=== PATIENT | female | born 1960 | race Caucasian/White ===

== ENCOUNTER 2019-07-29 04:42 | Emergency (ER) | payer BC, SELFPAY ==
[2019-07-29 04:43] VITALS: BP 118/82; PULSE 60; RESP 12; TEMP 36.4; O2SAT 99; BMI 29.4
--- NOTE | 2019-07-29 04:51 | ED.VIS.GEN ---
History of Present Illness Chief Complaint: Upper Extremity Injury Informant: Patient Narrative: Stated a few hours ago she woke up with sharp pain in the medial aspect of her scapula. It radiates into her right arm and down to her wrist. It is a burning sensation as well. She has been having this mildly for the last week. It is movement related. She did lift some heavy things yesterday and thinks she might exacerbated pain in this area. She is tried massage. No home medications. No previous injury to this area. It hurts to touch it. It hurts to move her right arm secondary to pain in that scapular region. Relieved somewhat with rest. - Past Medical History (1) Chest pain Status: Acute (2) Pre-syncope Status: Acute (3) Asthma Status: Chronic (4) Hyperlipidemia Status: Chronic (5) Hypothyroidism Status: Chronic Past Medical History - Allergies and Home Meds Allergies/Adverse Reactions: Allergies clarithromycin [From Biaxin] Allergy (Verified 07/29/19 04:50) Rash codeine Allergy (Verified 07/29/19 04:50) Rash erythromycin base Allergy (Verified 07/29/19 04:50) Rash Penicillins Allergy (Verified 07/29/19 04:50) Rash Sulfa (Sulfonamide Antibiotics) Allergy (Verified 07/29/19 04:50) Rash Primary Care Physician: Jose Eduardo Dubois MD [STAFF PHYSICIAN] - Prior records reviewed: Yes Past Medical History: - - See problem list Surgical History: adenoidectomy, gastric bypass, hysterectomy, tonsillectomy, - - , laparoscopy Lives: With Family Smoking Status: Never smoker Alcohol: None Drugs: None - Family History Maternal Family History: Reports: Cancer Paternal Family History: Reports: Hypertension Review of Systems General: Denies: Chills, Fever, Sweats Eyes: Denies: Visual changes - bilaterally, Diplopia ENT: Denies: Rhinorrhea, Sore throat Cardiovascular: Denies: Chest pain, Palpitations Respiratory: Denies: Dyspnea, Cough, Dyspnea on exertion Gastrointestinal: Denies: Abdominal pain, Nausea, Vomiting, Diarrhea, Melena, Hematochezia Genitourinary: Denies: Dysuria, Hematuria, Frequency Musculoskeletal: Reports: Back pain, Extremity Pain Skin: Denies: Rash, Wounds Neurological: Denies: Headache, Weakness, Numbness Physical Exam Vital Signs/Narrative: Vital Signs Temp Pulse Resp BP Pulse Ox 07/29/19 04:43 97.6 F L 60 12 118/82 H 99 General: Well nourished, Well developed, No Acute Distress Head: Normocephalic, Atraumatic Eyes: Perrl, EOMI ENT: Moist mucous membranes, No rhinorrhea Neck: Supple, Nontender Cardiovascular: Regular rate, Regular rhythm, No murmurs Respiratory: No distress, CTA bilaterally, Chest nontender Abdomen: Soft, Nontender, Nondistended, Normal bowel sounds Back: Normal Inspection, - - Point tenderness on the superior medial border of the scapula without swelling or deformity over the rhomboid Extremities: Nontender, No edema, - - Normal pulses. Negative for: Tenderness Skin: Normal color, No rash Neurological: Alert, Oriented x3, Cranial nerves II-XII grossly intact, Normal Strength, Normal Sensation Psychological: Normal affect, Normal Mood Diagnostic/Tx/Re-eval - Medical Decision Making Patient given a dose of Dilaudid and Toradol. Given ice pack. At this time I feel she has an acute rhomboid inflammation or strain. This is also causing her radiculopathy the right upper extremity. I do not feel is cardiac PE or dissection. Patient feels significantly better after treatment. Will be given a prescription for Medrol Dosepak to try to calm her radiculopathy. Will also be given Percocet for home ED Disposition - Plan for ED Patient: Disposition: Home or Assisted Living Diagnosis: Rhomboid muscle strain, Radiculopathy affecting upper extremity Instructions: Treating?Strains and Sprains Prescriptions: MethylPREDNISolone DosePak [Medrol DosePak] 4 mg PO UD #1 box Transmission Status: Received by [id number] Oxycodone HCl/Acetaminophen [Percocet 5/325] 1 - 2 tab PO Q6H PRN PRN 3 Days #12 tab PRN Reason: Pain Transmission Status: Received by [id number] Referrals: Jose Eduardo Dubois MD [STAFF PHYSICIAN] -
[2019-07-29] MEDS: Ketorolac 30 MG/ML Syringe IM (04:55)
[2019-07-29] MEDS: Ondansetron ODT 4 MG Tablet 8 MG PO (04:55)
[2019-07-29] MEDS: HYDROmorphone 1 MG/ML Syringe IM (04:55)
[2019-07-29] MEDS: HYDROmorphone 0.5 MG/0.5 ML SYRINGE IM (05:51)
[2019-07-29 06:13] VITALS: RESP 16
== END 2019-07-29 06:14 | disposition home or self-care (01) ==
PROVIDERS: Emergency Provider Emergency Medicine
DX: S29.012A Strain of muscle and tendon of back wall of thorax, initial encounter (principal); M54.10 Radiculopathy, site unspecified; J45.909 Unspecified asthma, uncomplicated; E78.5 Hyperlipidemia, unspecified; E03.9 Hypothyroidism, unspecified; Z79.899 Other long term (current) drug therapy; X50.0XXA Overexertion from strenuous movement or load, initial encounter; Y93.89 Activity, other specified; Y92.89 Other specified places as the place of occurrence of the external cause; Y99.8 Other external cause status
CPT/HCPCS: 96372; 99283

== ENCOUNTER 2019-08-01 06:37 | Emergency (ER) | payer BC, SELFPAY ==
[2019-08-01 06:38] VITALS: BP 147/81; PULSE 67; RESP 18; TEMP 36.2; O2SAT 97; BMI 29.7
--- NOTE | 2019-08-01 06:55 | ED.DCSUM_ITS ---
- ER Visit Summary Date of Service: 08/01/19 Chief Complaint: Right upper back pain. History of Present Illness: The patient is a 58 F has medical history of hypothyroidism congenital 1 kidney prior gastric bypass. Patient states she normally does not have back pain. States Thursday morning around 3 AM started having right upper back pain. At times radiates to her right arm. Denies any neck pain. Denies any fall or trauma. She did lift some boards several days before this and thinks that may be the cause. She denies any cough or chest pain. She was seen in the emergency department written for Percocet for pain and says not controlling the pain. States the pain is worse with any type of movement. Physical Examination: Well-appearing 4-year-old female no acute distress vital signs stable afebrile. HEENT exam unremarkable. Neck nontender no lymphadenopathy full range of motion. Lungs clear to auscultation bilaterally. Heart regular rhythm no murmur. Abdomen soft nontender normal bowel sounds no peritoneal signs. Extremities moves all 4. Neurovascular intact. Equal symmetrical radial pulses bilaterally. 4-5 order to delivery supervisor strength right hand. Normal touch sensation. She has pain with range of motion of the right arm. Back exam she is para thoracic spinal and scapular soft tissue tenderness. Consistent with myofascial strain and spasm. There is no ecchymosis or bruising. No bony deformity. Cervical thoracic and lumbar spine are all nontender. Neurologic ally she is awake alert with no focal motor deficit. Test Results: None. I do not think imaging or labs at this time would be of any benefit. Emergency Department Course and Treatment: Patient be written for limited [place] 10 no refill. I think this is a musculoskeletal etiology consistent with myofascial strain and spasm of the right trapezius. She be written for Skelaxin. Treatment Plan: [place] for pain 10 no refill. Skelaxin 800 3 times daily #30. Follow-up with her primary care physician. Disposition: Discharge Impression: Upper back pain secondary to myofascial strain and spasm of the trapezius muscle This note was generated with [employer] dictation software. It may contain incorrect words, spelling, and punctuation that were not noted in review of the chart prior to signing ED Disposition - Plan for ED Patient: Referrals: NOT,DEFINED [Primary Care Provider] -
[2019-08-01] MEDS: HYDROcodone Bitartrate/Apap 5/325 Tablet PO (06:57)
--- NOTE | 2019-08-01 06:59 | DCINST.ED_ITS ---
ED Disposition - Plan for ED Patient: Disposition: Home or Assisted Living Instructions: ED Spasm Back No Trauma Prescriptions: Hydrocodone Bitart/Apap 5-325 [[place] 5MG-325MG] 1 tab PO Q4H PRN PRN 2 Days #10 tab PRN Reason: Pain Prescription Printed Metaxalone [Skelaxin] 800 mg PO 4X/DAY #30 tab Prescription Printed Referrals: Devyn Jimenez PA [PHYSICIAN STORE OPERATIONS ASSOCIATE] - 1 Week if not improving Additional Instructions: Hot shower, warm bath and massage to relieve the discomfort in your upper back. Skelaxin as a muscle relaxant. Motrin for anti-inflammatory and pain and limited [place]. Follow-up with your primary care provider Abner Jimenez if not improving.
== END 2019-08-01 07:42 | disposition home or self-care (01) ==
PROVIDERS: Emergency Provider Emergency Medicine; PCP Physician Assistant
DX: S29.012A Strain of muscle and tendon of back wall of thorax, initial encounter (principal); M62.830 Muscle spasm of back; E03.9 Hypothyroidism, unspecified; Z98.84 Bariatric surgery status; Z79.899 Other long term (current) drug therapy; X50.0XXA Overexertion from strenuous movement or load, initial encounter; Y93.89 Activity, other specified; Y92.89 Other specified places as the place of occurrence of the external cause; Y99.8 Other external cause status
CPT/HCPCS: 99283

== ENCOUNTER 2020-07-20 11:00 | Emergency (ER) | payer BC, SELFPAY ==
[2020-07-20 11:01] VITALS: BP 144/92; PULSE 59; RESP 16; TEMP 36.3; O2SAT 97; BMI 28.3
[2020-07-20 11:03] VITALS: BP 144/92; PULSE 59; RESP 16; TEMP 36.3; O2SAT 97
--- NOTE | 2020-07-20 11:18 | ED.VIS.GI ---
HPI HPI - GI History of Present Illness Chief Complaint: Abd Pain Informant: patient Abdominal Pain/Flank Pain Onset: Weeks Timing: Intermittent Quality: Cramping Location: Epigastric and RUQ Current Severity: Mild Maximum Severity: Mild Nausea/Vomiting/Emesis GI Symptom: Positive for Nausea and Vomiting Onset: Days Severity: Mild Diarrhea/Melena/Hematochezia GI Symptom: Positive for Diarrhea Onset: Days Stool Quality: Positive for Loose Severity: Mild Associated Symptoms Associated Symptoms: Negative for Dysuria, Frequency and Hematuria Narrative Narrative: 59-year-old female history of multiple prior abdominal surgeries including gastric bypass, cholecystectomy, hysterectomy, multiple C-sections and laparoscopies. States the last 2 weeks she has had intermittent nausea, vomiting and diarrhea with abdominal cramping primarily in the upper quadrants. Denies any fever or chills. No dysuria. She has had similar symptoms to this before. Patient is in pain management was using oxycodone for her discomfort. Prior similar symptoms: Yes Recent Illness/Hospitalization: No PFSH [facility] Medical History (Updated 07/20/20 @ 14:[address] Marcio Davis MD) Asthma Fatty (change of) liver, not elsewhere classified GERD (gastroesophageal reflux disease) Graves disease Hypoplasia of one kidney Kidney stones Home Medications gabapentin 2,400 mg PO QHS 07/20/13 [History Last Taken 07/19/20] montelukast 10 mg PO DAILY 07/20/13 [History Last Taken 07/20/20] ascorbic acid (vitamin C) [Vitamin C] 1,000 mg PO DAILY 02/24/16 [History Last Taken 07/20/20] biotin 10,000 mcg PO DAILY 02/24/16 [History Last Taken 07/20/20] cyanocobalamin (vitamin B-12) 2,000 mcg PO DAILY 02/24/16 [History Last Taken 07/20/20] lorazepam 0.5 mg PO BID 02/24/16 [History Last Taken 07/20/20] cetirizine 10 mg PO QHS 07/20/20 [History Last Taken 07/19/20] escitalopram oxalate 20 mg PO DAILY 07/20/20 [History Last Taken 07/20/20] levothyroxine [Synthroid] 125 mcg PO DAILY 07/20/20 [History Last Taken 07/20/20] oxybutynin chloride 10 mg PO DAILY 07/20/20 [History Last Taken 07/20/20] pantoprazole 40 mg PO DAILY 07/20/20 [History Last Taken 07/20/20] Allergy/AdvReac Type Severity Reaction Status Date / Time clarithromycin [From Biaxin] Allergy Rash Verified 07/20/20 11:03 codeine Allergy Rash Verified 07/20/20 11:03 erythromycin base Allergy Rash Verified 07/20/20 11:03 Penicillins Allergy Rash Verified 07/20/20 11:03 Sulfa (Sulfonamide Allergy Rash Verified 07/20/20 11:03 Antibiotics) Social History Smoking Status: Never smoker ROS ROS ED Review of Systems ROS Unobtainable: Denies due to encephalopathy Constitutional Constitutional ED: Denies chills or fever(s) ENT ENT ED: Denies ear pain or sore throat Cardiovascular Cardiovascular: Denies chest pain Respiratory/Chest Respiratory/Chest: Denies dyspnea Gastrointestinal Gastrointestinal: Reports abdominal pain, diarrhea, nausea and vomiting Genitourinary Genitourinary ED: Denies dysuria or hematuria Musculoskeletal Musculoskeletal: Denies myalgias Integumentary Denies rash Neurologic Neurologic: Denies headache(s) Psychiatric Psychiatric: Denies depression Endocrine Endocrinology: Denies polyuria Hematologic/Lymphatic Hematologic/Lymphatic: Denies easy bruising Allergic/Immunologic Allergic/Immunologic ED: Denies urticaria EXAM Physical Exam Narrative Exam Narrative: Middle-aged older female no acute distress vital signs stable afebrile. Benign exam except for mild upper abdominal tenderness. No peritoneal signs. No distention. Normal bowel sounds and soft. No obvious signs of obstruction. Otherwise exam unremarkable. Const Vital Signs: 07/20/20 11:01 07/20/20 11:03 07/20/20 13:21 Temperature 97.4 F L 97.4 F L Temperature Source Temporal Temporal Pulse Rate 59 L 59 L 49 L Respiratory Rate 16 16 16 Blood Pressure 144/92 H 144/92 H 144/80 H Blood Pressure Mean 109 109 101 Pulse Ox 97 97 96 Oxygen Delivery Method Room Air Room Air Room Air HEENT Reports moist mucous membranes normocephalic and atraumatic; Negative for tenderness Eyes PERRL and EOMs intact bilaterally Neck no lymphadenopathy, supple and no JVD General: Negative for tenderness Resp normal respiratory effort and clear to auscultation bilaterally Cardio regular rate, regular rhythm and no murmurs GI non-distended and no masses Inspection: Negative for abdominal distention Auscultation: normoactive bowel sounds; Negative for hypoactive bowel sounds Palpation: soft and tender; Negative for rebound tenderness present Back/Spine no CVA tenderness Extremity full ROM General Extremety ED: Negative for edema or tenderness General Extremity: Negative for edema Neuro moves all extremities Sensorium / Orientation: alert, oriented to person, oriented to place and oriented to time Motor Exam: strength 5/5 throughout Psych mental status grossly normal Skin Lesions: no lesions Rashes: no rashes MDM MDM MDM Narrative Medical decision making narrative: 59-year-old with abdominal pain. Has had multiple prior abdominal surgeries. This could be from adhesions and scar tissue. She has had prior bowel obstructions. She will undergo CAT scan imaging with labs. She requested something for pain she will be given a milligram of Dilaudid and Zofran for nausea. The hospitalist and general surgeon discussed the patient's care. I spoke to the general surgeon myself. She felt due to the patient's history of gastric bypass and the level of her current obstruction that she would benefit from a tertiary referral center. I discussed all this with the patient and her . They preferred to stay but understand and I have contacted [facility] and are awaiting acceptance. Lab Data Labs: Laboratory Results - last 24 hr 07/20/20 07/20/20 07/20/20 11:26 11:26 11:56 WBC 8.5 RBC 4.22 Hgb 12.4 Hct 38.5 MCV 91.2 MCH 29.4 MCHC 32.2 RDW Std Deviation 45.7 H RDW Coeff of Mellissa 13.7 Plt Count 182 MPV 12.2 H Immature Gran % (Auto) 0.600 Neut % (Auto) 70.7 H Lymph % (Auto) 22.2 [place] % (Auto) 5.1 Eos % (Auto) 0.9 Baso % (Auto) 0.5 Absolute Neuts (auto) 6.0 Absolute Lymphs (auto) 1.88 Nucleated RBC % 0 Sodium 140 Potassium 4.1 Chloride 107 Carbon Dioxide 27.0 Anion Gap 6 BUN 15 Creatinine 0.85 Estim Creat Clear Calc 57.49 Est GFR (MDRD) Af Amer 87 Est GFR (MDRD) Non-Af 72 BUN/Creatinine Ratio 17.7 Glucose 91 Calcium 8.7 Total Bilirubin 0.40 AST 24 ALT 30 Alkaline Phosphatase 104 Total Protein 7.3 Albumin 3.6 Globulin 3.7 Albumin/Globulin Ratio 1.0 Lipase 50 L Urine Color Yellow Urine Clarity Sl. Cloudy Urine pH 5.0 Ur Specific [place] 1.015 Urine Protein Negative Urine Glucose (UA) Normal Urine Ketones Negative Urine Occult Blood Negative Urine Nitrite Negative Urine Bilirubin Negative Urine Urobilinogen Normal Ur Leukocyte Esterase 25 H Urine RBC 0 SEEN Urine WBC 0-5 SEEN Ur Squamous Epith Cells 0-5 SEEN Urine Bacteria 1+ Urine Mucus 0 SEEN CBC unremarkable white count 8. Hemoglobin 12. Chemistries normal. Liver enzymes normal. Lipase 50. UA negative. Radiography Diagnostic Testing: Radiology Impression Abdomen/Pelvis CT 07/20/20 12:16 IMPRESSION: Status post gastric bypass surgery with postoperative changes. Dilatation of the proximal small bowel loops to the level of the anastomotic site in the left upper quadrant in the mid jejunum. A surgical anastomosis at that site. I suspect narrowing and obstruction at that level. Electronically Signed: Ld Boo MD at 12:49 EDT , Service support , Discharge Plan Triage Chief Complaint: Abd Pain ED Provider: Marcio Davis Dx/Rx/DC Orders Clinical Impression: Partial small bowel obstruction Prescriptions: No Action gabapentin 600 MG tablet 2,400 mg PO QHS RF: 0 montelukast 10 MG tablet 10 mg PO DAILY RF: 0 lorazepam 0.5 MG tablet 0.5 mg PO BID RF: 0 ascorbic acid (vitamin C) [Vitamin C] 1,000 MG tablet 1,000 mg PO DAILY RF: 0 biotin 10,000 MCG capsule 10,000 mcg PO DAILY RF: 0 cyanocobalamin (vitamin B-12) 2,000 MCG tablet 2,000 mcg PO DAILY RF: 0 cetirizine 10 mg Tablet 10 mg PO QHS RF: 0 oxybutynin chloride 10 mg tablet extended release 24hr 10 mg PO DAILY RF: 0 pantoprazole 40 mg tablet,delayed release (DR/EC) 40 mg PO DAILY RF: 0 levothyroxine [Synthroid] 125 mcg tablet 125 mcg PO DAILY RF: 0 escitalopram oxalate 20 mg tablet 20 mg PO DAILY RF: 0 Primary Care Provider: Devyn Jimenez Referrals: Devyn Jimenez, PA [Primary Care Provider] -
[2020-07-20] MEDS: HYDROmorphone 1 MG/ML Syringe IV (11:30)
[2020-07-20] MEDS: Ondansetron 4 MG/2 ML Vial IV (11:30)
[2020-07-20] MEDS: 0.9% Normal Saline 1,000 ML 1000 ML IV (11:30)
[2020-07-20 11:54] LABS: Absolute Lymphocyte Count 1.88 X10^3/uL (0.83-4.51); Basophil# 0.04 X10^3/uL; Basophil% 0.5 % (0-1); Eosinophil# 0.08 X10^3/uL; Eosinophils% 0.9 % (0-5); Hematocrit 38.5 % (37-47); Hemoglobin 12.4 g/dL (12.0-15.0); Lymphocyte # 1.88 X10^3/ul (0.83-4.51); Lymphocyte % 22.2 % (19-41); Mean Corp Hgb Conc 32.2 g/dL (32-36); Mean Corpuscular Hgb 29.4 pg (27.0-32.0); Mean Corpuscular Volume 91.2 fL (81-99); Mean Platelet Vol. 12.2 fl (6.2-12.0); Monocyte# 0.43 X10^3/uL; Monocyte% 5.1 % (0-10); NRBC Flagged by Analyzer 0 % (0-5); Neutrophil % 70.7 % (47-70); Platelet Count 182 K/mm3 (150-450); RBC Distribution Width CV 13.7 % (11.6-14.6); RBC Distribution Width SD 45.7 fl (35.1-43.9); Red Blood Count 4.22 M/mm3 (4.2-5.4); White Blood Count 8.5 K/mm3 (4.4-11.0)
[2020-07-20 12:05] LABS: Mucous, Urine 0 SEEN /hpf (<or=2+); Red Blood Cells-Urine 0 SEEN /hpf (0-5)
[2020-07-20 12:07] LABS: AST(SGOT) 24 U/L (15-37); Alanine Aminotransfer ALT/SGPT 30 U/L (13-56); Albumin, Serum 3.6 g/dL (3.2-5.0); Alkaline Phosphatase 104 U/L (45-117); Anion Gap 6 (5-15); BUN 15 mg/dL (7-18); BUN/Creat Ratio 17.7 RATIO (10-20); Calcium,Total 8.7 mg/dL (8.5-10.1); Chloride 107 mmol/L (98-107); Creatinine, Serum 0.85 mg/dL (0.55-1.02); EST Glomerular Filtration Rate 72 mL/min (>60); Est Glom Filt Rate - Afr Amer 87 mL/min (>60); Estimated Creatinine Clearance 57.49 ml/min; Globulin 3.7 g/dL (2.2-4.2); Glucose 91 mg/dL (74-106); Lipase 50 U/L (73-393); Potassium 4.1 mmol/L (3.5-5.1); Protein, Total 7.3 g/dL (6.4-8.2); Sodium Level 140 mmol/L (136-145)
[2020-07-20 12:08] LABS: Color, Urine Yellow (Yellow); Glucose, Dipstick Normal (Normal); Ketone-Dipstick Negative (Negative); Leukocyte Esterase-Dipstick 25 /ul (Negative); Nitrite-Dipstick Negative (Negative); Occult Blood-Urine Negative /ul (Negative); Protein-Dipstick Negative (Negative); Specific Gravity, Urine 1.015 (1.002-1.030); Urine Bilirubin Dipstick Negative (Negative); Urine Clarity Sl. Cloudy (Clear); Urine Urobilinogen Normal (Normal)
--- NOTE | 2020-07-20 12:16 | CT_ITS ---
STUDY: CT ABDOMEN AND PELVIS WITH CONTRAST REASON FOR EXAM: Female, 59 years old. Postprandial pain and cramping for 4 weeks. Diarrhea. RADIATION DOSAGE (If Supplied By Facility): CTDIvol = ( 14.88 ) mGy, DLP = ( 874.41 ) mGycm TECHNIQUE: Transaxial images were obtained from the dome of the diaphragm to the symphysis pubis without oral contrast. IV 100mL Isovue-300 was administered. Sagittal and coronal images were reconstructed. Individualized dose optimization techniques were used for this CT. COMPARISON: Comparison is made with prior study dated 08/05/2012. FINDINGS: Increased linear markings at the left lung base suggestive of scarring. The visualized portions of the heart are within normal limits. Normal liver. Normal gallbladder and extrahepatic biliary system. There are multiple benign calcified granulomata of the spleen. There is diffuse atrophy of the pancreas. Normal bilateral adrenal glands. Normal right kidney. Normal left kidney. The patient is status post gastric bypass surgery. Stable appearance with the mildly dilated duodenum and proximal jejunum. A transition point is once again seen in the left upper quadrant. Increased markings are seen within the root of the mesentery. Multiple small lymph nodes are seen within the root of the mesentery. There is a mild degree of fluid distention of the proximal small bowel loops to the mid jejunum. A transition point is seen at the anastomotic site in the mid abdomen just to the left of the umbilicus. Clinical correlation is recommended. Normal colon. The appendix is visualized and appears normal. Normal abdominal aorta. Normal inferior vena cava. Normal retroperitoneum. Normal urinary bladder. There is absence of the uterus consistent with a prior hysterectomy. Normal abdominal wall. There are degenerative changes of the visualized lumbar spine. CT/Abdomen/Pelvis W IV Cont ONLY IMPRESSION: Status post gastric bypass surgery with postoperative changes. Dilatation of the proximal small bowel loops to the level of the anastomotic site in the left upper quadrant in the mid jejunum. A surgical anastomosis at that site. I suspect narrowing and obstruction at that level. Electronically Signed: Ld Boo MD at 12:49 EDT , Service support ,
[2020-07-20 12:20] LABS: Bacteria 1+ /hpf (None Seen); Squamous Epithelial Cells - UA 0-5 SEEN /hpf (5-10); White Blood Cells 0-5 SEEN /hpf (0-5)
[2020-07-20 13:21] VITALS: BP 144/80; PULSE 49; RESP 16; O2SAT 96
[2020-07-20 15:00] VITALS: BP 153/70; PULSE 48; RESP 16; O2SAT 97
== END 2020-07-20 15:45 | disposition short-term general hospital (02) ==
PROVIDERS: Emergency Provider Emergency Medicine; PCP Physician Assistant
DX: K56.600 Partial intestinal obstruction, unspecified as to cause (principal); J45.909 Unspecified asthma, uncomplicated; K21.9 Gastro-esophageal reflux disease without esophagitis; E05.00 Thyrotoxicosis with diffuse goiter without thyrotoxic crisis or storm; Z79.899 Other long term (current) drug therapy; Z98.84 Bariatric surgery status
CPT/HCPCS: 74177; 80053; 81001; 83690; 85025; 96361; 96374; 96375; 99285; Q9967; A4216; J2405

== ENCOUNTER 2024-06-23 10:48 | Emergency (ER) | payer MEDICARE, BC, SELFPAY ==
[2024-06-23 10:48] VITALS: BP 131/73; PULSE 57; RESP 16; TEMP 36.8; O2SAT 100; BMI 23.0
--- NOTE | 2024-06-23 11:48 | CT_ITS ---
PROCEDURE: ABDOMEN/PELVIS W IV CONT ONLY 06/23/2024 REASON FOR EXAM: LEFT UPPER QUADRANT EPIGASTRIC PAIN Pain across the liver. Nausea. Hypoplasia of kidney. TECHNIQUE: Contiguous axial scans of 3.75 mm slice thicknesses. Sagittal and coronal reconstruction images were obtained. One or more dose reduction techniques were used (e.g., automated exposure control, adjustment of mA and/or kv according to patient size, use of iterative reconstruction technique). PATIENT PREPARATION: Per protocol ORAL CONTRAST TYPE: None. AMOUNT: 0 mL CONTRAST: Not given. RADIATION DOSE SUMMARY: DLP: 408.42 mGycm COMPARISON: CT abdomen and pelvis dated 07/20/2020 FINDINGS: Lung bases: Parenchymal scarring, left lung base. Liver: Normal in size and attenuation. No masses. No biliary ductal dilatation. Few scattered calcified granulomas. Gallbladder: Surgically absent. Spleen: Normal in size and attenuation. Calcified spleen granulomas. Pancreas: Stable. Some atrophic changes. Adrenals: No adrenal masses.. Kidneys: A normal left kidney is not visualized. A small fluid collection in the left renal fossa measures 2.3 x 1.3 cm, axial image 37 compensatory enlargement of the right kidney. No right renal masses. No hydronephrosis. No calcifications. Bladder: Unremarkable. Reproductive Organs: Surgically absent uterus. Bowel: Stable postoperative findings in the left upper quadrant. Appendix: No evidence of appendicitis. Lymph nodes: No lymphadenopathy. Vasculature: No aneurysm. Mild atherosclerotic calcifications. Peritoneum / Retroperitoneum: No free air. No free fluid. No suspicious masses. Bones: Multilevel facet arthropathy. CT/Abdomen/Pelvis W IV Cont ONLY IMPRESSION: Stable postoperative changes in the left upper quadrant. Status post cholecystectomy and hysterectomy. Absent left kidney. Consider agenesis, hypoplasia, or nephrectomy. Left adrenal gland thickening. Atrophic changes of the pancreas. Parenchymal scarring at the left lung base. Reading Location: [facility]
--- NOTE | 2024-06-23 11:48 | ED.VIS.GI ---
HPI HPI - GI History of Present Illness Chief Complaint: Abd Pain Narrative Narrative: 63-year-old female presents with her because of epigastric to left upper quadrant pain that she has had since Thursday evening, 2 days ago. She states been gradual onset and has become increasing over the last 24 hours. She had partial small bowel obstruction in the past but states this does not feel similar because she is having bowel movements and she is not vomiting. The pain is dull and achy but sometimes sharp and stabbing as well. It is mainly in the epigastrium and towards the left upper quadrant. She has had history of gastric bypass as well as cholecystectomy. No exacerbating or alleviating factors. [facility] Medical History Hypoplasia of one kidney Fatty (change of) liver, not elsewhere classified Graves disease Kidney stones GERD (gastroesophageal reflux disease) Asthma Home Medications ?Medication ?Instructions ?Recorded ?Last Taken ?Type gabapentin 600 mg tablet 2,400 mg PO QHS restless leg X100 07/20/13 07/19/20 History montelukast 10 mg tablet 10 mg PO DAILY allergies 07/20/13 07/20/20 History ascorbic acid (vitamin C) 1,000 mg 1,000 mg PO DAILY supplement 02/24/16 07/20/20 History tablet (Vitamin C) biotin 10,000 mcg capsule 10,000 mcg PO DAILY supplement 02/24/16 07/20/20 History cyanocobalamin (vitamin B-12) 2,000 mcg PO DAILY 02/24/16 07/20/20 History 2,000 mcg tablet lorazepam 0.5 mg tablet 0.5 mg PO BID anxiety 02/24/16 07/20/20 History cetirizine 10 mg tablet 10 mg PO QHS allergies 07/20/20 07/19/20 History escitalopram oxalate 20 mg tablet 20 mg PO DAILY depression 07/20/20 07/20/20 History levothyroxine 125 mcg tablet 125 mcg PO DAILY thyroid 07/20/20 07/20/20 History (Synthroid) oxybutynin chloride 10 mg 10 mg PO DAILY bladder 07/20/20 07/20/20 History tablet,extended release 24 hr pantoprazole 40 mg tablet,delayed 40 mg PO DAILY gerd 07/20/20 07/20/20 History release Allergy/AdvReac Type Severity Reaction Status Date / Time clarithromycin (From Biaxin) Allergy Rash Verified 06/23/24 10:50 codeine Allergy Rash Verified 06/23/24 10:50 erythromycin base Allergy Rash Verified 06/23/24 10:50 Penicillins Allergy Rash Verified 06/23/24 10:50 Sulfa (Sulfonamide Allergy Rash Verified 06/23/24 10:50 Antibiotics) Social History Smoking Status: Never smoker ROS ROS ED ROS Narrative Constitutional: No fever, no chills. Cardiovascular: No chest pain. No palpitations. Respiratory: No cough, no shortness of breath. Abdominal: Positive epigastric to left upper quadrant abdominal pain. No nausea. No vomiting. No problems with bowel movements. Genitourinary: No dysuria. No hematuria. Musculoskeletal: No myalgias. No arthralgias. EXAM Physical Exam Narrative Exam Narrative: Afebrile. Vital signs noted. Nontoxic-appearing. Cardiovascular examination reveals a bradycardia. Lungs are clear to auscultation bilaterally. The abdomen is soft with mild tenderness to palpation in the epigastrium to left upper quadrant, no guarding or rebound. Positive bowel sounds. Neurological examination nonfocal and nonlateralizing. Const Vital Signs: 06/23/24 10:48 06/23/24 13:02 Temperature 98.2 F Temperature Source Temporal Pulse Rate 57 L 55 L Respiratory Rate 16 18 Blood Pressure 131/73 H 120/78 Blood Pressure Mean 92 92 Pulse Ox 100 97 Oxygen Delivery Method Room Air Room Air MDM MDM MDM Narrative Medical decision making narrative: The differential diagnosis includes but not limited to gastritis versus pancreatitis versus diverticulitis versus splenic rupture. Patient states that all of her pain is upper, she has having no lower abdominal pain. I have lower suspicion for a bowel obstruction as well because she states that this does not feel similar and is not having problems with bowel movements or vomiting. She states that she usually tolerates Dilaudid for pain/analgesia. She was administered 1 mg intravenously as well as ondansetron. I do feel CT imaging is indicated. Additional information is that she takes Wegovy for weight loss and has been on it for a year and a half without recent changes in administration. She has been tolerating it previously. I reviewed her laboratory work and she has normal white count of 6.6 with hemoglobin 11.9, hematocrit 35.4, platelet count normal at 152. Sodium normal at 138 with potassium 4.3, anion gap normal at 10, glucose appropriately elevated 90. LFTs are grossly unremarkable. Lipase normal at 27 so I doubt pancreatitis. Urinalysis negative for infection with 0-5 white cells. I do not feel antibiotics are indicated. I reviewed the radiology report of the CT of the abdomen and pelvis and there is no acute process, no obstruction, postsurgical changes consistent with her gastric bypass surgery. She does have atrophic changes of the pancreas. Patient did require 2 doses of Dilaudid. Repeat examination shows she is resting comfortably on the cot looking at her cellular telephone. I do feel that he can be discharged to follow-up. She was given a note to be off work today and tomorrow at her request. Additionally, I do not feel she requires hospitalization or emergent surgical consultation. Her daughter who is an RN came into the room and wanting a EKG performed although the patient denied having chest pain previously. EKG was obtained and interpreted by myself as sinus bradycardia at [address] changes. No STEMI, no ischemia. At this point in time, I feel she can be discharged to follow-up. Return instructions to the emergency department were reviewed. Disposition is discharged home in stable condition. History & Record Review Discussion w/independent historian: Patient Lab Data Attestation: I reviewed the patient's lab results. Labs: Laboratory Results - last 24 hr 06/23/24 06/23/24 12:10 13:07 WBC 6.6 RBC 3.87 L Hgb 11.9 L Hct 35.4 L MCV 91.5 MCH 30.7 MCHC 33.6 RDW Std Deviation 44.7 H RDW Coeff of Mellissa 13.2 Plt Count 152 MPV 11.6 Immature Gran % (Auto) 0.300 Neut % (Auto) 75.5 H Lymph % (Auto) 18.3 L [place] % (Auto) 4.7 Eos % (Auto) 0.9 Baso % (Auto) 0.3 Absolute Neuts (auto) 5.0 Absolute Lymphs (auto) 1.21 Nucleated RBC % 0 Sodium 138 Potassium 4.3 Chloride 103 Carbon Dioxide 25.0 Anion Gap 10 BUN 12 Creatinine 0.74 Estim Creat Clear Calc 57.99 Est GFR (MDRD) Non-Af 90 BUN/Creatinine Ratio 16.5 Glucose 90 Calcium 9.1 Total Bilirubin 0.67 AST 18 ALT 12 Alkaline Phosphatase 82 Total Protein 6.3 Albumin 3.8 Globulin 2.6 Albumin/Globulin Ratio 1.5 Lipase 27 Urine Color Yellow Urine Clarity Clear Urine pH 6.0 Ur Specific [place] 1.010 Urine Protein 15 H Urine Glucose (UA) Normal Urine Ketones Negative Urine Occult Blood Negative Urine Nitrite Negative Urine Bilirubin Negative Urine Urobilinogen Normal Ur Leukocyte Esterase 25 H Urine RBC 0 SEEN Urine WBC 0-5 SEEN Ur Squamous Epith Cells 0-5 SEEN Urine Bacteria 0 SEEN Urine Mucus 0 SEEN Radiography Diagnostic Testing: Clinical Impression(s) from Imaging Studies Abdomen/Pelvis CT 06/23/24 11:48 IMPRESSION: Stable postoperative changes in the left upper quadrant. Status post cholecystectomy and hysterectomy. Absent left kidney. Consider agenesis, hypoplasia, or nephrectomy. Left adrenal gland thickening. Atrophic changes of the pancreas. Parenchymal scarring at the left lung base. Reading Location: [facility] Discharge Plan Triage Chief Complaint: Abd Pain ED Provider: Shahbaz Ho Dx/Rx/DC Orders Clinical Impression: Abdominal pain, Epigastric pain Instructions: ED Abdominal Pain Unkn Cause Fem, ED Pain, Acute, Uncertain Cause Prescriptions: No Action gabapentin 600 MG tablet 2,400 mg PO QHS Patient Comments: s/p spinal effects montelukast 10 MG tablet 10 mg PO DAILY lorazepam 0.5 MG tablet 0.5 mg PO BID ascorbic acid (vitamin C) [Vitamin C] 1,000 MG tablet 1,000 mg PO DAILY biotin 10,000 MCG capsule 10,000 mcg PO DAILY cyanocobalamin (vitamin B-12) 2,000 MCG tablet 2,000 mcg PO DAILY cetirizine 10 mg Tablet 10 mg PO QHS oxybutynin chloride 10 mg tablet extended release 24hr 10 mg PO DAILY pantoprazole 40 mg tablet,delayed release (DR/EC) 40 mg PO DAILY levothyroxine [Synthroid] 125 mcg tablet 125 mcg PO DAILY escitalopram oxalate 20 mg tablet 20 mg PO DAILY Stand Alone Forms: ED Work / School Excuse Primary Care Provider: Marlene Etienne Referrals: Devyn Jimenez, PA [Non-Staff] - 3-5 Days if not improving Activity Restrictions/Additional Instructions: Follow-up with your primary care provider in the next 3 to 5 days. Continue your PPI medication. Return with fever, increased pain, new or worsening symptoms. Print Language: Nigerian Disposition Disposition: Home, Self Care
[2024-06-23] MEDS: 0.9% Normal Saline (1000mL) 1,000 ML 999 ML IV (12:15)
[2024-06-23] MEDS: Ondansetron 4 MG/2 ML Vial IV (12:15)
[2024-06-23] MEDS: HYDROmorphone 1 MG/ML Syringe IV ×2 (12:15→14:18)
[2024-06-23 12:20] LABS: Absolute Lymphocyte Count 1.21 X10^3/uL (0.83-4.51); Basophil# 0.02 X10^3/uL; Basophil% 0.3 % (0-1); Eosinophil# 0.06 X10^3/uL; Eosinophils% 0.9 % (0-5); Hematocrit 35.4 % (37-47); Hemoglobin 11.9 g/dL (12.0-15.0); Lymphocyte # 1.21 X10^3/ul (0.83-4.51); Lymphocyte % 18.3 % (19-41); Mean Corp Hgb Conc 33.6 g/dL (32-36); Mean Corpuscular Hgb 30.7 pg (27.0-32.0); Mean Corpuscular Volume 91.5 fL (81-99); Mean Platelet Vol. 11.6 fl (6.2-12.0); Monocyte# 0.31 X10^3/uL; Monocyte% 4.7 % (0-10); NRBC Flagged by Analyzer 0 % (0-5); Neutrophil # 4.98 X10^3/uL (2.7-7.7); Neutrophil % 75.5 % (47-70); Platelet Count 152 K/mm3 (150-450); RBC Distribution Width CV 13.2 % (11.6-14.6); RBC Distribution Width SD 44.7 fl (35.1-43.9); Red Blood Count 3.87 M/mm3 (4.2-5.4); White Blood Count 6.6 K/mm3 (4.4-11.0)
[2024-06-23 12:53] LABS: ALB/GLOB Ratio 1.5 RATIO (0.9-2.4); AST(SGOT) 18 U/L (<=31); Alanine Aminotransfer ALT/SGPT 12 U/L (<=34); Albumin, Serum 3.8 g/dL (3.4-4.8); Alkaline Phosphatase 82 U/L (35-104); Anion Gap 10 (5-15); BUN 12 mg/dL (4-19); BUN/Creat Ratio 16.5 RATIO (10-20); Calcium,Total 9.1 mg/dL (7.6-11.0); Chloride 103 mmol/L (98-108); Creatinine, Serum 0.74 mg/dL (0.70-1.20); EST Glomerular Filtration Rate 90 (>60); Estimated Creatinine Clearance 57.99 ml/min (50-250); Globulin 2.6 g/dL (2.2-4.2); Glucose 90 mg/dL (70-99); Lipase 27 U/L (13-75); Potassium 4.3 mmol/L (3.3-5.1); Protein, Total 6.3 g/dL (5.9-8.4); Sodium Level 138 mmol/L (133-145); Total Bilirubin 0.67 mg/dL (0.00-1.30)
[2024-06-23 13:02] VITALS: BP 120/78; PULSE 55; RESP 18; O2SAT 97
[2024-06-23 13:24] LABS: Bacteria 0 SEEN /hpf (None Seen); Mucous, Urine 0 SEEN /hpf (<or=2+); Red Blood Cells-Urine 0 SEEN /hpf (0-5)
[2024-06-23 13:28] LABS: Color, Urine Yellow (Yellow); Glucose, Dipstick Normal (Normal); Ketone-Dipstick Negative (Negative); Leukocyte Esterase-Dipstick 25 /ul (Negative); Nitrite-Dipstick Negative (Negative); Occult Blood-Urine Negative /ul (Negative); Protein-Dipstick 15 mg/dl (Negative); Urine Bilirubin Dipstick Negative (Negative); Urine Clarity Clear (Clear); Urine Urobilinogen Normal (Normal)
[2024-06-23 13:42] LABS: White Blood Cells 0-5 SEEN /hpf (0-5)
[2024-06-23 13:43] LABS: Squamous Epithelial Cells - UA 0-5 SEEN /hpf (5-10)
[2024-06-23 14:52] VITALS: BP 122/70; PULSE 55; RESP 18; TEMP 36.6; O2SAT 99
== END 2024-06-23 14:53 | disposition home or self-care (01) ==
PROVIDERS: Emergency Provider Emergency Medicine; PCP Clinical Nurse Specialist Adult Health; Referring Provider Emergency Medicine; Visit Provider Emergency Medicine
DX: R10.13 Epigastric pain (principal); R00.1 Bradycardia, unspecified; K86.89 Other specified diseases of pancreas; K21.9 Gastro-esophageal reflux disease without esophagitis; J45.909 Unspecified asthma, uncomplicated; Z79.85 Long-term (current) use of injectable non-insulin antidiabetic drugs
CPT/HCPCS: 74177; 80053; 81001; 83690; 85025; 93005; 96361; 96374; 96375; 96376; 99283; Q9967; A4216; J2405